=== PATIENT | female | born 1970 | race Two or more races ===

== ENCOUNTER 2017-06-25 16:42 | Emergency (ER) | payer MEDICAID, OTHER ==
[~2017-06-25] VITALS: Ht 167.6 cm; Wt 72.6 kg
[2017-06-25 16:54] VITALS: BP 148/73
== END 2017-06-25 20:43 | disposition left against medical advice (07) ==
LOC: ER 16:48
DX: M54.2 Cervicalgia (principal); M54.9 Dorsalgia, unspecified; Z53.21 Procedure and treatment not carried out due to patient leaving prior to being seen by health care provider
CPT/HCPCS: 72050; 93005

== ENCOUNTER 2024-05-05 09:46 | Inpatient (IN) | payer MEDICAID ==
[~2024-05-05] VITALS: Ht 157.5 cm; Wt 70.0 kg
[2024-05-05 10:29] LABS: Basophils # (auto) 0 10 ^3/uL (0-0.2); Basophils % (auto) 0.4 % (0.0-2.0); Eosinophils # (auto) 0.1 10 ^3/uL (0-0.8); Eosinophils % (auto) 1.4 % (0.0-7.0); Hematocrit 43.8 % (36.0-46.0); Hemoglobin 14.9 g/dL (12.2-16.2); Lymphocytes # (auto) 2.8 10 ^3/uL (0.4-5.4); Lymphocytes % (auto) 30.8 % (10.0-50.0); Mean Corpuscular Hemoglobin 32.4 pg (28.0-32.0); Mean Corpuscular Hgb Conc. 34.1 g/dL (32.0-36.0); Mean Corpuscular Volume 95.1 fL (80.0-100.0); Monocytes # (auto) 0.7 10 ^3/uL (0-1.3); Monocytes % (auto) 7.4 % (0.0-12.0); Neutrophils # (auto) 5.5 10 ^3/uL (1.6-8.6); Red Blood Cells 4.61 10^6/uL (4.0-5.20); Red Cell Distribution Width 13.8 % (11.8-14.3); White Blood Cell 9.2 10^3/uL (4.4-10.8)
[2024-05-05 10:43] LABS: Chloride 103 mmol/L (98-107); Potassium 3.6 mmol/L (3.5-5.1); Sodium 137 mmol/L (136-145)
[2024-05-05 10:44] LABS: Anion Gap 8 (5-15); Calcium 9.7 mg/dL (8.5-10.1); Carbon Dioxide 26 mmol/L (20-30)
[2024-05-05 10:49] LABS: BUN/Creatinine Ratio 13.2 (10.0-20.0); Blood Urea Nitrogen 10 mg/dL (9-23); Glucose 179 mg/dL (74-106)
[2024-05-05] MEDS: IOHEXOL 350 MG/ML 100ML IJ ONE (11:21)
[2024-05-05 13:22] LABS: Urine Bacteria None Seen /hpf (None Seen)
[2024-05-05 13:47] LABS: Urine Blood 2+ /uL (Negative); Urine Clarity Clear (Clear); Urine Color Light-Yellow (Yellow); Urine Protein, UAD TRACE (Negative); Urine Urobilinogen Normal (Negative); Urine WBC 2 /hpf (0 - 5)
[2024-05-05 13:52] LABS: Urine Specific Gravity > 1.050 (1.001-1.035)
[2024-05-05] MEDS ORDERED: MORPHINE SULFATE 4 MG/ML SYR/VIAL IV PRN (14:00)
[2024-05-05] MEDS ORDERED: MORPHINE SULFATE INJ 2 MG/ml SYRG IV PRN (14:00)
[2024-05-05] MEDS ORDERED: ONDANSETRON HCL 4 MG/2 ML VIAL IV PRN (14:00)
[2024-05-05] MEDS ORDERED: NITROGLYCERIN 0.4 MG SL TAB SL PRN ×2 (14:00)
[2024-05-05] MEDS ORDERED: DEXTROSE (50%) 50ML SYRG IV PRN (14:45)
[2024-05-05 16:05] LABS: INR 0.95 (0.9-1.15); Prothrombin Time 10.1 sec (9.3-11.8)
[2024-05-05] MEDS: InsuLIN REG 1unit/0.01ml Soln (100units/ml) SC SCH (17:00)
[2024-05-05] MEDS: ACCU-CHEK COMFORT CURVE STRIP VI SCH (17:22)
[2024-05-05 17:23] VITALS: RESP 16; O2SAT 9
[2024-05-05] MEDS ORDERED: TRAM50TA2 PO (17:55)
[2024-05-05] MEDS ORDERED: CLOP75TA28 PO (17:55)
[2024-05-05] MEDS ORDERED: ASPI-543 PO (17:55)
[2024-05-05] MEDS: ACETAMINOPHEN 325 MG TAB PO PRN (18:52)
[2024-05-05 20:00] VITALS: PULSE 81
[2024-05-05] MEDS ORDERED: hydrALAZINE HCL 20 MG/ML VL IV PRN (21:30)
[2024-05-05] MEDS: ATORVASTATIN 20 MG TAB PO SCH (21:37)
[2024-05-06 05:00] VITALS: BP 131/73; PULSE 79; RESP 17; TEMP 98.2; O2SAT 97
[2024-05-06 06:53] LABS: Basophils # (auto) 0 10 ^3/uL (0-0.2); Basophils % (auto) 0.3 % (0.0-2.0); Eosinophils # (auto) 0.1 10 ^3/uL (0-0.8); Eosinophils % (auto) 1.8 % (0.0-7.0); Hematocrit 41.8 % (36.0-46.0); Hemoglobin 14.2 g/dL (12.2-16.2); Lymphocytes # (auto) 2.3 10 ^3/uL (0.4-5.4); Lymphocytes % (auto) 32.3 % (10.0-50.0); Mean Corpuscular Hemoglobin 32.1 pg (28.0-32.0); Mean Corpuscular Volume 94.5 fL (80.0-100.0); Monocytes # (auto) 0.7 10 ^3/uL (0-1.3); Monocytes % (auto) 9.4 % (0.0-12.0); Neutrophils # (auto) 4.1 10 ^3/uL (1.6-8.6); Neutrophils % (auto) 56.2 % (37.0-80.0); Red Blood Cells 4.42 10^6/uL (4.0-5.20); Red Cell Distribution Width 13.7 % (11.8-14.3); White Blood Cell 7.2 10^3/uL (4.4-10.8)
[2024-05-06 07:28] LABS: Alanine Aminotransferase 24 U/L (7-40); Albumin 4.3 g/dL (3.2-4.8); Alkaline Phosphatase 93 U/L (46-116); Anion Gap 7 (5-15); Aspartate Aminotransferase 13 U/L (13-40); BUN/Creatinine Ratio 17.7 (10.0-20.0); Blood Urea Nitrogen 11 mg/dL (9-23); Calcium 9.7 mg/dL (8.5-10.1); Carbon Dioxide 25 mmol/L (20-30); Chloride 105 mmol/L (98-107); Glucose 97 mg/dL (74-106); LDL Cholesterol 115 mg/dL (< 100); Potassium 3.7 mmol/L (3.5-5.1); Sodium 137 mmol/L (136-145); Triglycerides 125 mg/dL (< 150)
[2024-05-06 07:29] LABS: Bilirubin, Total 0.7 mg/dL (0.2-1.0); Cholesterol 174 mg/dL (< 200); HDL Cholesterol 41 mg/dL (40-59); Total Protein 6.9 g/dL (5.7-8.2)
[2024-05-06 07:47] VITALS: PULSE 87
[2024-05-06 09:00] VITALS: BP 150/73; PULSE 85; RESP 14; TEMP 98.8; O2SAT 97
[2024-05-06] MEDS: ASPirin 81 mg TAB PO SCH (10:56)
[2024-05-06] MEDS: DOCUSATE SOD 100 MG CAP PO SCH (10:58)
[2024-05-06] MEDS: CLOPIDOGREL BISULFATE 75 MG TAB PO SCH (10:58)
[2024-05-06] MEDS: LISINOPRIL 20 MG TAB PO SCH (10:58)
[2024-05-06] MEDS: PENTOXIFYLLINE 400 MG ER TAB PO SCH (10:59)
[2024-05-06 13:00] VITALS: BP 119/73; PULSE 87; RESP 16; TEMP 98.7; O2SAT 94
[2024-05-06] MEDS ORDERED: LISI10TA34 PO (14:56)
[2024-05-06] MEDS ORDERED: ATOR-507 PO (14:56)
[2024-05-06 16:30] VITALS: BP 115/70; PULSE 80; RESP 18; TEMP 98.5; O2SAT 94
== END 2024-05-06 17:15 | disposition home or self-care (01) | DRG 203 ==
LOC: ER 09:46 → TELE 14:15 → TELE-WESTW 17:00
PROVIDERS: ADMIT Nurse Practitioner Family; ATTEND Nurse Practitioner Family
DX: R07.89 Other chest pain (principal); E04.1 Nontoxic single thyroid nodule; E78.5 Hyperlipidemia, unspecified; K21.9 Gastro-esophageal reflux disease without esophagitis; E66.9 Obesity, unspecified; I10 Essential (primary) hypertension; I65.22 Occlusion and stenosis of left carotid artery; R73.03 Prediabetes; I70.8 Atherosclerosis of other arteries; Z90.710 Acquired absence of both cervix and uterus; Z68.28 Body mass index [BMI] 28.0-28.9, adult; Z79.02 Long term (current) use of antithrombotics/antiplatelets; Z79.82 Long term (current) use of aspirin
CPT/HCPCS: 36415; 71045; 71275; 80048; 80053; 80061; 81001; 82962; 83036; 83735; 84484; 85025; 85379; 85610; 87081; 93005; 93306; 93886; 93971; G0378

== ENCOUNTER 2024-08-16 11:29 | Emergency (ER) | payer MEDICAID ==
[~2024-08-16] VITALS: Ht 154.9 cm; Wt 67.3 kg
[~2024-08-16 11:29] MED LIST: ASPI-543 PO; ATOR-507 PO; CLOP75TA28 PO; LISI10TA34 PO; TRAM50TA2 PO
[2024-08-16 12:47] LABS: Chloride 107 mmol/L (98-107); Potassium 3.7 mmol/L (3.5-5.1); Sodium 141 mmol/L (136-145)
[2024-08-16 12:48] LABS: Anion Gap 7 (5-15); Calcium 9.9 mg/dL (8.7-10.4); Carbon Dioxide 27 mmol/L (20-31)
[2024-08-16 12:53] LABS: BUN/Creatinine Ratio 9.6 (10.0-20.0); Blood Urea Nitrogen 7 mg/dL (9-23); Glucose 149 mg/dL (74-106)
[2024-08-16 12:54] LABS: Basophils # (auto) 0 10 ^3/uL (0-0.2); Basophils % (auto) 0.4 % (0.0-2.0); Eosinophils # (auto) 0.1 10 ^3/uL (0-0.8); Eosinophils % (auto) 2.5 % (0.0-7.0); Hematocrit 40.9 % (36.0-46.0); Hemoglobin 14.2 g/dL (12.2-16.2); Lymphocytes # (auto) 2.2 10 ^3/uL (0.4-5.4); Lymphocytes % (auto) 37.4 % (10.0-50.0); Mean Corpuscular Hemoglobin 32.9 pg (28.0-32.0); Mean Corpuscular Hgb Conc. 34.7 g/dL (32.0-36.0); Monocytes # (auto) 0.5 10 ^3/uL (0-1.3); Monocytes % (auto) 7.6 % (0.0-12.0); Neutrophils # (auto) 3.1 10 ^3/uL (1.6-8.6); Neutrophils % (auto) 52.1 % (37.0-80.0); Nucleated Red Blood Cells % 0.1 %; Platelet Count (auto) 315 10^3/uL (140-450); Red Cell Distribution Width 14.3 % (11.8-14.3); White Blood Cell 5.9 10^3/uL (4.4-10.8)
[2024-08-16 13:06] LABS: Partial Thromboplastin Time 27.1 SEC (24.5-34.5); Prothrombin Time 10.6 sec (9.3-11.8)
[2024-08-16] MEDS ORDERED: ACET-1304 PO (15:59)
[2024-08-16] MEDS ORDERED: METH-1181 PO (15:59)
[2024-08-16] MEDS ORDERED: MELO7.5T7 PO (15:59)
[2024-08-16] MEDS ORDERED: GABA300T4 PO (15:59)
[2024-08-16] MEDS: GABAPENTIN 300 MG CAP PO ONE (18:39)
[2024-08-16] MEDS: KETOROLAC TROMETH 60MG/2ML VIAL IM ONE (18:40)
[2024-08-16] MEDS: HYDROcodone-ACET 5/325MG TAB PO ONE (18:41)
[2024-08-16 21:45] VITALS: BP 149/61; PULSE 53; RESP 18; O2SAT 97
== END 2024-08-16 20:56 | disposition home or self-care (01) ==
LOC: ER 11:46
DX: M54.31 Sciatica, right side (principal); E78.5 Hyperlipidemia, unspecified; I10 Essential (primary) hypertension; I25.10 Atherosclerotic heart disease of native coronary artery without angina pectoris; Z90.710 Acquired absence of both cervix and uterus; Z98.890 Other specified postprocedural states; Z79.899 Other long term (current) drug therapy
CPT/HCPCS: 36415; 80048; 83880; 85025; 85610; 85730; 93971; 96372; 99285; J1885

== ENCOUNTER 2025-06-15 16:18 | Emergency (ER) | payer MEDICAID ==
[~2025-06-15] VITALS: Ht 157.5 cm; Wt 72.5 kg
[~2025-06-15 16:18] MED LIST changes: +ACET-1304 PO; +GABA300T4 PO; +MELO7.5T7 PO; +METH-1181 PO
--- NOTE | 2025-06-15 16:37 | ED.PDOC ---
History of Present Illness HPI Comments This is a 54-year-old female with past medical history of hypertension, thyroid cancer status post thyroidectomy, status post PTCA x1 in left subclavian artery presented to the ED with a chief complaint of rectal pain and bleeding for last 2 days prior to this visit. The patient is Persian-speaking. According to the daughters patient was diagnosed with hemorrhoid in March 2025 and 2 days ago she started having rectal pain and blood mixed with the stool. Denies chest pain, shortness of breath, abdominal pain, nausea, vomiting, dysuria, hematuria or any changes in bowel habit Chief Complaint: Rectal Pain Time Seen by MD: 16:19 Primary Care Provider: MAO Allergies: Coded Allergies: NO KNOWN ALLERGIES (Unverified , 05/05/24) Home Meds Active Scripts Meloxicam (Meloxicam) 7.5 Mg Tab, 1 TAB PO DAILY PRN, #30 TAB 2 Refills prn pain Prov:CHRIS ENCISO MD 08/16/24 Gabapentin (Once-Daily) (Gabapentin) 300 Mg Tab, 300 MG PO Q8HP PRN, #30 TAB prn pain Prov:CHRIS ENCISO MD 08/16/24 Methocarbamol (Methocarbamol) 500 Mg Tab, 1000 MG PO Q8HP PRN, #30 TAB prn muscle pain/spasm Prov:CHRIS ENCISO MD 08/16/24 Acetaminophen (Tylenol Extra Strength) 500 Mg Tab, 1000 MG PO Q6HP PRN, #30 TAB prn pain Prov:CHRIS ENCISO MD 08/16/24 Lisinopril (Lisinopril) 10 Mg Tab, 10 MG PO DAILY for 30 Days, #30 TAB 2 Refills Prov:LUPIS DE PAZ MD 05/06/24 Atorvastatin Calcium (Lipitor) 40 Mg Tab, 1 TAB PO DAILY, #30 TAB 5 Refills Prov:LUPIS DE PAZ MD 05/06/24 Reported Medications Clopidogrel Bisulfate (Plavix) 75 Mg Tab, 1 TAB PO DAILY, 1 Refill 05/05/24 Aspirin (Aspir-Low) 81 Mg Tab, 81 MG PO DAILY for 30 Days, MG 05/05/24 Tramadol Hcl (Tramadol Hcl) 50 Mg Tab, 50 MG PO Q8HPRN, MG 05/05/24 Information Source: Patient Mode of Arrival: Ambulatory Severity: Mild Timing: Days Duration: Since onset Prehospital treatment: None Past Medical History PAST MEDICAL HISTORY: High Lipids, HTN Past Medical History (Other): Thyroid cancer Surgical History: Hysterectomy, PTCA, Thyroidectomy [employer]SM[employer] MECH[employer]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 Family History Family History: Reviewed,noncontributory to illness, Unknown Social History Smoker: Non-Smoker Alcohol: Denies ETOH Use Drugs: Denies Drug Use Lives In: Home Constitutional: denies: chills, diaphoresis, fatigue, fever, malaise, sweats, weakness, others EENTM: denies: blurred vision, double vision, ear bleeding, ear discharge, ear drainage, ear pain, ear ringing, eye pain, eye redness, hearing loss, mouth pain, mouth swelling, nasal discharge, nose bleeding, nose congestion, nose pain, photophobia, tearing, throat pain, throat swelling, voice changes, others Respiratory: denies: cough, hemoptysis, orthopnea, SOB at rest, shortness of breath, SOB with excertion, stridor, wheezing, others Cardiovascular: denies: chest pain, dizzy spells, diaphoresis, Dyspnea on exertion, edema, irregular heart beat, left arm pain, lightheadedness, palpitations, PND, syncope, others Gastrointestinal: reports: rectal bleeding, rectal pain; denies: abdomen distended, abdominal pain, blood streaked bowels, constipated, diarrhea, dysphagia, difficulty swallowing, hematemesis, melena, nausea, poor appetite, poor fluid intake, vomiting, others Genitourinary: denies: abnormal vagina bleeding, burning, dyspareunia, dysuria, flank pain, frequency, hematuria, incontinence, pain, , vagina discharge, urgency, others Musculoskeletal: denies: back pain, gout, joint pain, joint swelling, muscle pain, muscle stiffness, neck pain, others Integumetry: denies: bruises, change in color, change in hair/nails, dryness, laceration, lesions, lumps, rash, wounds, others Allergic/Immunocompromised: denies: Difficulty Healing, Frequent Infections, Hives, Itching, others Endocrine: denies: excessive hunger, excessive sweating, excessive thirst, excessive urination, flushing, intolerance to cold, intolerance to heat, unexplained weight gain, unexplained weight loss, others Psychiatric: denies: anxiety, bipolar disorder, depression, hopeless, panic disorder, schizophrenia, sleepless, suicidal, others Physical Exam General Appearance: Normal HEENT: Normal ENT Inspection, Pharynx Normal, TMs Normal Neck: Full Range of Motion, Non-Tender, Normal, Normal Inspection Respiratory: Chest Non-Tender, Lungs Clear, No Accessory Muscle Use, No Respiratory Distress, Normal Breath Sounds Cardiovascular: No Edema, No JVD, No Murmur, No Gallop, Normal Peripheral Pulses, Regular Rate/Rhythm Breast Exam: Deferred Gastrointestinal: No Organomegaly, Non Tender, No Pulsatile Mass, Normal Bowel Sounds Genitalia: Deferred Pelvic: Deferred Rectal: Deferred Extremities: NOT DONE Neurologic: NOT DONE Cerebellar Function: NOT DONE Reflexes: NOT DONE Skin: NOT DONE Peripheral Pulses: 3+ carotid (R), 3+ carotid (L), 3+ femoral (R), 3+ femoral (L), 3+ dorsalis pedis (R), 3+ dorsalis pedis (L), 3+ Radial (R), 3+ Radial (L), 3+ Brachial (R), 3+ Brachial (L) Lymphatic: NOT DONE Was a procedure done? Was a procedure done?: No Differential Dx Considerations may include: Hemorrhoids, anal fissure, gastritis, PUD X-Ray, Labs, Meds, VS Vital Signs Date Time Temp Pulse Resp B/P (MAP) Pulse Ox O2 Delivery O2 Flow Rate FiO2 06/15/25 16:19 98.2 76 18 107/65 95 98.2 Lab Test 06/15/25 17:03 Range/Units White Blood Count 7.1 4.4-10.8 10^3/uL Red Blood Count 4.45 4.0-5.20 10^6/uL Hemoglobin 14.5 12.2-16.2 g/dL Hematocrit 42.5 36.0-46.0 % Mean Corpuscular Volume 95.4 80.0-100.0 fL Mean Corpuscular Hemoglobin 32.6 H 28.0-32.0 pg Mean Corpuscular Hemoglobin Concent 34.2 32.0-36.0 g/dL Red Cell Distribution Width 13.2 11.8-14.3 % Platelet Count 318 140-450 10^3/uL Mean Platelet Volume 8.8 6.9-10.8 fL Neutrophils (%) (Auto) 43.9 37.0-80.0 % Lymphocytes (%) (Auto) 44.4 10.0-50.0 % Monocytes (%) (Auto) 9.8 0.0-12.0 % Eosinophils (%) (Auto) 1.6 0.0-7.0 % Basophils (%) (Auto) 0.3 0.0-2.0 % Neutrophils # (Auto) 3.1 1.6-8.6 10 ^3/uL Lymphocytes # (Auto) 3.2 0.4-5.4 10 ^3/uL Monocytes # (Auto) 0.7 0-1.3 10 ^3/uL Eosinophils # (Auto) 0.1 0-0.8 10 ^3/uL Basophils # (Auto) 0 0-0.2 10 ^3/uL Nucleated Red Blood Cells 0.1 % Prothrombin Time 9.9 9.3-11.8 sec Prothrombin Time INR 0.93 0.9-1.15 Activated Partial Thromboplast Time 26.7 24.5-34.5 SEC Sodium Level 139 136-145 mmol/L Potassium Level 3.8 3.5-5.1 mmol/L Chloride Level 103 98-107 mmol/L Carbon Dioxide Level 28 20-31 mmol/L Anion Gap 8 5-15 Blood Urea Nitrogen 15 9-23 mg/dL Creatinine 0.93 0.550-1.02 mg/dL Glomerular Filtration Rate Calc 72 >90 mL/min BUN/Creatinine Ratio 16.1 10.0-20.0 Serum Glucose 94 74-106 mg/dL Calcium Level 9.5 8.7-10.4 mg/dL Images Reviewed?: Images reviewed and evaluated by me Time of 1ST Reevaluation: 17:53 Reevaluation 1ST: Unchanged Patient Education/Counseling: Diagnosis, Treatment Family Education/Counseling: Diagnosis, Treatment SEPSIS Sepsis Screen Date sepsis recognized/suspect: Jun 15, 2025 Time Sepsis recognized/suspect: 1620 Recent Procedure: No On Antibiotic Therapy: No Respiratory Rate >20: No Heart Rate >90: No Temp<36 C (96.8 F) or >38.3 C: No SBP <90 or MAP <65 mmHG: No New Acute Mental Status Change: No Is the patient on CPAP, BIPAP,: No Vital Signs Date Time Temp Pulse Resp B/P (MAP) Pulse Ox O2 Delivery O2 Flow Rate FiO2 06/15/25 16:19 98.2 76 18 107/65 95 98.2 Laboratory Tests Test 06/15/25 17:03 White Blood Count 7.1 10^3/uL (4.4-10.8) Departure 1 Departure Time of Disposition: 17:53 Impression: Primary Impression: Hemorrhoid Additional Impression: Gastritis Disposition: 01 HOME / SELF CARE / HOMELESS Condition: Fair e-Prescriptions Hydrocortisone Base (Anusol-Hc) 2.5 % Cre 1 APPLIC TOP BID for 30 Days, #30 GRAMS 1 Refill Prov: KAYY ANTHONY RESIDENT 06/15/25 Pantoprazole Sodium Sesquihydr (Protonix) 40 Mg Tab 40 MG PO DAILY for 30 Days, #30 TAB Prov: KAYY ANTHONY RESIDENT 06/15/25 Discharged With: Self Critical Care Note Critical Care Time?: No Stability Stability form required: No KAYY ANTHONY RESIDENT Jun 15, 2025 16:37
[2025-06-15 17:19] LABS: Hematocrit 42.5 % (36.0-46.0); Hemoglobin 14.5 g/dL (12.2-16.2); Mean Corpuscular Hemoglobin 32.6 pg (28.0-32.0); Mean Corpuscular Volume 95.4 fL (80.0-100.0); Nucleated Red Blood Cells % 0.1 %
[2025-06-15 17:28] LABS: Chloride 103 mmol/L (98-107); Potassium 3.8 mmol/L (3.5-5.1); Sodium 139 mmol/L (136-145)
[2025-06-15 17:29] LABS: Anion Gap 8 (5-15); Calcium 9.5 mg/dL (8.7-10.4); Carbon Dioxide 28 mmol/L (20-31)
[2025-06-15 17:30] LABS: INR 0.93 (0.9-1.15); Partial Thromboplastin Time 26.7 SEC (24.5-34.5); Prothrombin Time 9.9 sec (9.3-11.8)
[2025-06-15 17:34] LABS: BUN/Creatinine Ratio 16.1 (10.0-20.0); Blood Urea Nitrogen 15 mg/dL (9-23); Glucose 94 mg/dL (74-106)
[2025-06-15] MEDS ORDERED: PANT40TA2 PO (18:12)
[2025-06-15] MEDS ORDERED: HYDR2.5C39 TOP (18:12)
[2025-06-15 18:31] VITALS: BP 136/70; PULSE 62; RESP 18; TEMP 97.5; O2SAT 99
== END 2025-06-15 18:33 | disposition home or self-care (01) ==
LOC: ER 16:18
DX: K29.70 Gastritis, unspecified, without bleeding (principal); K64.9 Unspecified hemorrhoids; E78.5 Hyperlipidemia, unspecified; I10 Essential (primary) hypertension; Z90.710 Acquired absence of both cervix and uterus; Z85.850 Personal history of malignant neoplasm of thyroid; Z87.19 Personal history of other diseases of the digestive system; Z79.899 Other long term (current) drug therapy; Z79.82 Long term (current) use of aspirin; Z79.02 Long term (current) use of antithrombotics/antiplatelets
CPT/HCPCS: 36415; 80048; 85025; 85610; 85730